=== PATIENT | female | born 1955 | race Caucasian/White ===

== ENCOUNTER 2018-06-30 08:37 | Outpatient (CLI) | payer OTHER | END 2018-06-30 23:59 | disposition home or self-care (01) | LOC: CARD 08:37 | PROVIDERS: ATTEND Nurse Practitioner Family | DX: R06.4 Hyperventilation (principal); W01.0XXS Fall on same level from slipping, tripping and stumbling without subsequent striking against object, sequela | CPT/HCPCS: 95819 ==